=== PATIENT | female | born 1970 | race Caucasian/White ===

== ENCOUNTER 2016-08-16 21:22 | Emergency (ER) | payer MEDICAID, MEDICARE ==
[~2016-08-16] VITALS: Ht 160 cm; Wt 100.2 kg
[~2016-08-16 21:22] MED LIST: PHENERGAN/DEXTRO5 ML PO; ZITHROMAX250 MG PO
[2016-08-16 21:47] VITALS: BP 123/78
--- NOTE | 2016-08-17 00:01 | NUR ---
TO ER BED 3
--- NOTE | 2016-08-17 00:07 | NUR ---
PT IS 46/F BIB FAMILY TO ED WITH C/O BILAT KNEE PAIN/SWELLING , X 1 DAY. PT DENIES DIFFICULTY BREATHING PT STATES MED HX: [facility] [place]-DR ANIBAL SALMON PCP TOLD PT SHE IS AT RISK FOR BLOOD CLOTS. DENIES N/V/D; SKIN IS PINK/WARM/DRY; AAOX4 WITH EVEN AND STEADY GAIT; LUNGS CLEAR BL; HR EVEN AND REGULAR; PT DENIES ANY FEVER, CP, SOB, OR COUGH AT THIS TIME; PATIENT STATES PAIN OF 7/10 AT THIS TIME; VSS; PATIENT POSITIONED FOR COMFORT; HOB ELEVATED; BEDRAILS UP X2; BED DOWN. ER MD MADE AWARE OF PT STATUS.
[2016-08-17] MEDS ORDERED: HYDROcodone/APAP 5/325 MG 1 TAB TAB PO ONE (00:25)
[2016-08-17] MEDS ORDERED: KETOROLAC 30 MG/ML VIAL IM ONE (01:10)
[2016-08-17 01:32] VITALS: BP 112/68
--- NOTE | 2016-08-17 01:32 | NUR ---
Patient discharged with v/s stable. Written and verbal after care instructions given and explained. Patient alert, oriented and verbalized understanding of instructions. Ambulatory with steady gait. All questions addressed prior to discharge. ID band removed. Patient advised to follow up with PMD. Rx of COMPRESSION STOCKINGS AND NAPROSYN given. Patient educated on indication of medication including possible reaction and side effects. Opportunity to ask questions provided and answered.
== END 2016-08-17 01:32 | disposition home or self-care (01) ==
LOC: MED 21:22
DX: R60.0 Localized edema (principal); Z87.442 Personal history of urinary calculi
CPT/HCPCS: 36415; 71010; 80053; 83880; 85025; 99285; Q0092

== ENCOUNTER 2016-11-25 11:54 | Emergency (ER) | payer MEDICARE ==
[~2016-11-25] VITALS: Ht 162.6 cm; Wt 95.5 kg
[2016-11-25 13:05] VITALS: BP 123/81
--- NOTE | 2016-11-25 16:40 | NUR ---
PT C/O LEFT ELBOW PAIN 01/13 --DENIES ANY OTHER COMPLAINT AT THIS TIME--CONTINUES TO WAIT FOR AVAILABLE ROOM FOR [facility]. WILL REQUEST ANALGESIC WHILE CONTINUES TO [facility] FOR AVAILABLE ROOM
--- NOTE | 2016-11-25 17:28 | NUR ---
PATIENT AMBULATED TO BED 8.
[2016-11-25] MEDS ORDERED: ASPIRIN 81 MG TAB.CHEW PO ONE (17:35)
[2016-11-25] MEDS ORDERED: oxyCODONE/APAP 5/325 MG 1 TAB TAB PO ONE (17:35)
--- NOTE | 2016-11-25 17:36 | NUR ---
Patient being evaluated by physician at bedside.
--- NOTE | 2016-11-25 17:49 | NUR ---
Pt taken to x-ray via w/c.
--- NOTE | 2016-11-25 17:58 | NUR ---
Lab at bedside for blood draw.
--- NOTE | 2016-11-25 18:35 | NUR ---
Patient appears to be resting comfortably in bed. VSS. Dinner tray ordered for patient. All needs addressed.
--- NOTE | 2016-11-25 18:44 | NUR ---
Dinner tray provided to patient. Pt eating and tolerating well. All needs addressed.
--- NOTE | 2016-11-25 18:48 | NUR ---
Dr. Bazzi re-evaluating patient at bedside.
--- NOTE | 2016-11-25 19:02 | NUR ---
Pt report given to Syeda TSANG. Transfer of care at this time.
[2016-11-25 19:17] VITALS: BP 119/77
--- NOTE | 2016-11-25 19:17 | NUR ---
Patient discharged with v/s stable. Written and verbal after care instructions given and explained. Patient alert, oriented and verbalized understanding of instructions. Ambulatory with to car. All questions addressed prior to discharge. ID band removed. Patient advised to follow up with PMD OR RETURN TO ER IF CONDITION WORSENS. Rx of FLEXERIL given. Patient educated on indication of medication including possible reaction and side effects. Opportunity to ask questions provided and answered.
== END 2016-11-25 19:17 | disposition home or self-care (01) ==
LOC: MED 11:54
DX: S46.912A Strain of unspecified muscle, fascia and tendon at shoulder and upper arm level, left arm, initial encounter (principal); M25.522 Pain in left elbow; X50.9XXA Other and unspecified overexertion or strenuous movements or postures, initial encounter; Y93.89 Activity, other specified; Y92.89 Other specified places as the place of occurrence of the external cause; Y99.8 Other external cause status
CPT/HCPCS: 36415; 73030; 73070; 82948; 84484; 93005; 99285

== ENCOUNTER 2018-03-19 01:43 | Emergency (ER) | payer MEDICARE ==
[~2018-03-19] VITALS: Ht 162.6 cm; Wt 94.6 kg
[2018-03-19 01:56] VITALS: BP 125/77
[2018-03-19] MEDS ORDERED: METF500T PO (02:01)
[2018-03-19] MEDS ORDERED: BACL10TA4 PO (02:01)
--- NOTE | 2018-03-19 02:10 | NUR ---
PT PRESENTS TO ED WITH C/O NECK PAIN X TODAY, DENIES INJURY OR TRAUMA. PT REPORTS THE PAIN OCCURED AFTER A STRESSFUL PHONE CALL. PT HAS FULL ROM OF NECK BUT REPORTS PAIN WHEN MOVING SIDE TO SIDE. PT REPORTS TAKING OLD RX OF BACLOFEN EARLIER TODAY WITH NO RELIEF OF PAIN. PT PLACED IN BED. PENDING [facility].
[2018-03-19] MEDS ORDERED: HYDROcodone/APAP 10/325 MG 1 TAB TAB PO ONE (03:20)
[2018-03-19] MEDS ORDERED: KETOROLAC 60 MG/2 ML VIAL IM ONE (03:20)
[2018-03-19] MEDS ORDERED: CYCLOBENZAPRINE 10 MG TAB PO ONE (03:20)
--- NOTE | 2018-03-19 03:50 | NUR ---
PENDING DISCAHRGE ORDERS FROM DR XIE AT THIS TIME.
--- NOTE | 2018-03-19 04:38 | NUR ---
NO DISCHARGE ORDERS AT THIS TIME. PT RESTING IN BED. NO NEW QUESTIONS OR CONCERNS. WILL CONTINUE TO MONITOR.
[2018-03-19 05:23] VITALS: BP 130/85
--- NOTE | 2018-03-19 05:25 | NUR ---
Patient discharged with v/s stable. Written and verbal after care instructions given and explained. Patient alert, oriented and verbalized understanding of instructions. Ambulatory with steady gait. All questions addressed prior to discharge. ID band removed. Patient advised to follow up with PMD. Rx of FLEXIRL, NORCO, IBUPROFEN given. Patient educated on indication of medication including possible reaction and side effects. Opportunity to ask questions provided and answered.
== END 2018-03-19 05:24 | disposition home or self-care (01) ==
LOC: MED 01:43
DX: M54.2 Cervicalgia (principal); Z79.84 Long term (current) use of oral hypoglycemic drugs
CPT/HCPCS: 82948; 96372; 99283; J1885